=== PATIENT | female | born 1940 | race Two or more races ===

== ENCOUNTER 2020-02-17 15:13 | Emergency (ER) | payer MEDICARE, BC ==
[~2020-02-17] VITALS: Ht 162.6 cm; Wt 68.5 kg
--- NOTE | 2020-02-17 15:21 | NUR ---
[id number] home c/o chest pain 2hrs ago. 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 pt is s/p R knee replacement last . to ER bed 9, hooked to monitor, changed to hosp gown, warm blanket provided, patient aao X 4, breathing even and unlabored, awaiting MD ozuna
--- NOTE | 2020-02-17 15:55 | NUR ---
Dr Baltazar at bedside
[2020-02-17 16:11] LABS: BASOPHILS % (AUTO) 0.2 % (0.0-2.0); EOSINOPHILS % (AUTO) 1.2 % (0.0-6.0); HEMATOCRIT 31 % (33-45); HEMOGLOBIN 10.8 g/dL (11.5-14.8); LYMPHOCYTES # (AUTO) 1.2 /CMM (0.8-4.8); LYMPHOCYTES % (AUTO) 20.8 % (20.0-44.0); MEAN CORPUSCULAR HGB CONC 35 g/dl (31.0-36.0); MEAN CORPUSCULAR VOLUME 84 fL (82-100); MONOCYTES # (AUTO) 0.7 /CMM (0.1-1.30); MONOCYTES % (AUTO) 11.7 % (2.0-12.0); NEUTROPHILS # (AUTO) 3.7 /CMM (1.8-8.9); NEUTROPHILS % (AUTO) 66.1 % (43.0-81.0); PLATELET COUNT (AUTO) 229 /CMM (150-450); RED BLOOD CELL COUNT(AUTO) 3.75 MIL/uL (4.0-5.2); WHITE BLOOD COUNT (AUTO) 5.6 K/uL (4.3-11.0)
[2020-02-17 16:34] LABS: ALANINE AMINOTRANSFERASE 25 U/L (12-78); ALBUMIN 3.1 g/dL (3.4-5.0); ALKALINE PHOSPHATASE 56 U/L (46-116); ASPARTATE AMINOTRANSFERASE 31 U/L (15-37); BILIRUBIN,DIRECT 0.2 mg/dL (0.0-0.2); BILIRUBIN,TOTAL 0.6 mg/dL (0.2-1.0); CALCIUM, SERUM 8.7 mg/dL (8.5-10.1); CARBON DIOXIDE 26 mmol/L (21-32); CHLORIDE 85 mmol/L (98-107); CREATININE 0.6 mg/dL (0.6-1.3); GLUCOSE 115 mg/dL (74-106); POTASSIUM 3.5 mmol/L (3.5-5.1); SODIUM SERUM 121 mmol/L (136-145); TOTAL PROTEIN, SERUM 6.6 g/dL (6.4-8.2); UREA NITROGEN, BLOOD 7 mg/dL (7-18)
[2020-02-17] MEDS ORDERED: ISOS10TA2 PO (16:35)
[2020-02-17] MEDS ORDERED: METO25TA4 PO (16:35)
[2020-02-17] MEDS ORDERED: PRAV40TA3 PO (16:35)
[2020-02-17] MEDS ORDERED: LISI-603 PO (16:35)
[2020-02-17] MEDS ORDERED: IV NS 0.9% 500 ML BAG IV ONE (17:00)
--- NOTE | 2020-02-17 18:18 | NUR ---
Dr Baltazar at bedside speaking with patient's primary MD through phone
[2020-02-17 18:33] LABS: CALCIUM, SERUM 7.7 mg/dL (8.5-10.1); CARBON DIOXIDE 24 mmol/L (21-32); CHLORIDE 91 mmol/L (98-107); CREATININE 0.5 mg/dL (0.6-1.3); GLUCOSE 114 mg/dL (74-106); SODIUM SERUM 123 mmol/L (136-145); UREA NITROGEN, BLOOD 6 mg/dL (7-18)
[2020-02-17 19:23] VITALS: BP 159/81
--- NOTE | 2020-02-17 19:23 | NUR ---
IV removed. Catheter intact and site benign. Pressure and 4x4 applied to site. No bleeding noted.Patient discharged to home in stable condition. Written and verbal after care instructions given. Patient verbalizes understanding of instruction.
[2020-02-17] MEDS ORDERED: LABETALOL HCL IV 100MG VIAL IV ONE (19:30)
== END 2020-02-17 19:24 | disposition home or self-care (01) ==
LOC: ER 15:22
DX: R07.89 Other chest pain (principal); E87.1 Hypo-osmolality and hyponatremia; I10 Essential (primary) hypertension; Z79.899 Other long term (current) drug therapy
CPT/HCPCS: 36415; 71045; 80048 ×2; 80076; 84484; 85025; 93005 ×2; 96360; 96361; 99285; J7030

== ENCOUNTER 2025-02-16 15:51 | Inpatient (IN) | payer MEDICARE, BC ==
[~2025-02-16] VITALS: Ht 167.6 cm; Wt 63.5 kg
[~2025-02-16 15:51] MED LIST: ISOS10TA2 PO; LISI20TA30 PO; METO25TA4 PO; PRAV40TA3 PO
[2025-02-16] MEDS ORDERED: ONDANSETRON HCL/PF 4 MG/2 ML VIAL ONE (15:57)
[2025-02-16] MEDS: IV NS 0.9% 1,000 ML BAG IV ONE (16:05)
[2025-02-16] MEDS: ONDANSETRON HCL/PF 4 MG/2 ML VIAL IVP ONE (16:08)
[2025-02-16 16:24] LABS: PLATELET COUNT (AUTO) 276 K/uL (150-450); RED BLOOD CELL COUNT(AUTO) 4.85 MIL/uL (4.0-5.2); RED CELL DISTRIBUTION WIDTH 13.3 % (11.5-15.0); WHITE BLOOD COUNT (AUTO) 6.8 K/uL (4.3-11.0)
[2025-02-16 16:38] LABS: ASPARTATE AMINOTRANSFERASE 27 U/L (15-37); CALCIUM, SERUM 9.5 mg/dL (8.5-10.1); CREATININE 1.1 mg/dL (0.6-1.3); SODIUM SERUM 134 mmol/L (136-145); TOTAL PROTEIN, SERUM 7.4 g/dL (6.4-8.2); UREA NITROGEN, BLOOD 14 mg/dL (7-18)
[2025-02-16] MEDS ORDERED: MECLIZINE HCL 25 MG TABLET ONE (16:41)
[2025-02-16] MEDS: MECLIZINE HCL 25 MG TABLET PO ONE (16:44)
[2025-02-16] MEDS ORDERED: IOHEXOL-350 100 ML VIAL IV ONE (17:20)
[2025-02-16] MEDS ORDERED: IV NS 0.9% 250 ML IV ONE (17:20)
[2025-02-16] MEDS ORDERED: DIAZEPAM 5 MG/ML 2 ML DISP.SYRIN ONE (17:27)
[2025-02-16] MEDS: DIAZEPAM 5 MG/ML 2 ML DISP.SYRIN IV ONE (17:36)
[2025-02-16 18:51] LABS: INR 1.03 (0.91-1.10)
[2025-02-16] MEDS ORDERED: Z GUARD REMEDY 4 OZ OINT TP PRN (19:30)
[2025-02-16] MEDS ORDERED: MAGNESIUM HYDROXIDE 30 ML UDC PO PRN (19:30)
[2025-02-16] MEDS ORDERED: MAG HYDROX/AL HYDROX/SIMETH 30 ML UDC PO PRN (19:30)
[2025-02-16] MEDS ORDERED: ACETAMINOPHEN 325 MG TABLET PO PRN (19:30)
[2025-02-16] MEDS ORDERED: ZOLPIDEM TARTRATE 5 MG TABLET PO PRN (19:30)
[2025-02-16] MEDS ORDERED: MECLIZINE HCL 25 MG TABLET PO PRN (20:00)
[2025-02-16] MEDS: ASPIRIN 81 MG TAB.CHEW PO SCH (21:10)
[2025-02-16 22:06] LABS: APPEARANCE,URINE CLEAR (CLEAR); BLOOD, URINE Moderate Ery/uL (NEGATIVE); LEUKOCYTE ESTERASE ,URINE Negative (NEGATIVE); NITRITE, URINE NEGATIVE (NEGATIVE); UGLUCOSE Negative (NEGATIVE)
[2025-02-16] MEDS: IV NS 0.9% 1,000 ML IV SCH (22:36)
[2025-02-16] MEDS: ENOXAPARIN SODIUM 40 MG/0.4 ML DISP.SYRIN SQ SCH (22:37)
[2025-02-16 23:10] LABS: ADD URINE CULTURE NO; SQUAMOUS EPITHELIAL CELL,UR 0-2 /HPF (None Seen)
[2025-02-17] VITALS: BP 166/77; TEMP 97.6; O2SAT 95
[2025-02-17 04:00] VITALS: BP 148/77; TEMP 97.8; O2SAT 98
[2025-02-17 06:38] LABS: PLATELET COUNT (AUTO) 245 K/uL (150-450); RED BLOOD CELL COUNT(AUTO) 4.67 MIL/uL (4.0-5.2); RED CELL DISTRIBUTION WIDTH 13.3 % (11.5-15.0); WHITE BLOOD COUNT (AUTO) 4.8 K/uL (4.3-11.0)
[2025-02-17 06:56] LABS: CALCIUM, SERUM 9.2 mg/dL (8.5-10.1); CREATININE 0.7 mg/dL (0.6-1.3); PHOSPHORUS 3.5 mg/dL (2.5-4.9); SODIUM SERUM 139.0 mmol/L (136-145); UREA NITROGEN, BLOOD 8.0 mg/dL (7-18)
[2025-02-17 08:00] VITALS: BP 171/76; TEMP 97.9; O2SAT 100
[2025-02-17] MEDS: LISINOPRIL (20MG) 20 MG TABLET PO SCH (10:19)
[2025-02-17] MEDS: ATORVASTATIN 40 MG TABLET PO SCH (10:19)
[2025-02-17] MEDS: METOPROLOL TARTRATE 50 MG TABLET PO SCH (10:20)
[2025-02-17] MEDS: ISOSORBIDE DINITRATE (10MG) 10 MG TABLET PO SCH (10:20)
[2025-02-17 11:29] LABS: LDL 64.0 mg/dL (0-99)
[2025-02-17 12:00] VITALS: BP 138/74; TEMP 98.4; O2SAT 96
[2025-02-17] MEDS ORDERED: IOHEXOL-350 100 ML VIAL IV ONE (12:03)
[2025-02-17] MEDS ORDERED: IV NS 0.9% 250 ML IV ONE (12:03)
[2025-02-17 16:00] VITALS: BP 133/64; TEMP 98; O2SAT 96
[2025-02-17 20:00] VITALS: BP 174/64; TEMP 98.1; O2SAT 98
[2025-02-18] VITALS: BP 173/85; TEMP 98.1; O2SAT 97
[2025-02-18] MEDS: ONDANSETRON HCL/PF 4 MG/2 ML VIAL IVP PRN (02:57)
[2025-02-18 04:00] VITALS: BP 188/86; TEMP 97.7; O2SAT 97
[2025-02-18 08:00] VITALS: BP 175/76; TEMP 97.7; O2SAT 97
[2025-02-18] MEDS: ISOSORBIDE DINITRATE (10MG) 10 MG TABLET PO SCH (08:58)
[2025-02-18 09:52] LABS: PLATELET COUNT (AUTO) 242 K/uL (150-450); RED BLOOD CELL COUNT(AUTO) 4.53 MIL/uL (4.0-5.2); RED CELL DISTRIBUTION WIDTH 13.4 % (11.5-15.0); WHITE BLOOD COUNT (AUTO) 4.2 K/uL (4.3-11.0)
[2025-02-18 10:04] LABS: ASPARTATE AMINOTRANSFERASE 20.0 U/L (15-37); CALCIUM, SERUM 8.5 mg/dL (8.5-10.1); CREATININE 0.8 mg/dL (0.6-1.3); PHOSPHORUS 2.8 mg/dL (2.5-4.9); SODIUM SERUM 133.0 mmol/L (136-145); TOTAL PROTEIN, SERUM 6.2 g/dL (6.4-8.2); UREA NITROGEN, BLOOD 6.0 mg/dL (7-18)
[2025-02-18] MEDS: IV NS 0.9% 1,000 ML BAG IV PRN (11:20)
[2025-02-18] MEDS: IV NS 0.9% 500 ML IV ONE (11:38)
[2025-02-18 12:00] VITALS: BP 118/73; TEMP 98; O2SAT 98
[2025-02-18] MEDS: IV NS 0.9% 1,000 ML IV PRN (13:19)
[2025-02-18 16:00] VITALS: BP 150/99; TEMP 99; O2SAT 99
[2025-02-18 20:00] VITALS: BP 156/78; TEMP 98; O2SAT 99
[2025-02-19] VITALS: BP 133/109; TEMP 98; O2SAT 99
[2025-02-19 04:00] VITALS: BP 167/66; TEMP 98; O2SAT 99
[2025-02-19 08:00] VITALS: BP 121/74; TEMP 97.7; O2SAT 100
[2025-02-19 11:04] LABS: PLATELET COUNT (AUTO) 226 K/uL (150-450); RED BLOOD CELL COUNT(AUTO) 4.86 MIL/uL (4.0-5.2); RED CELL DISTRIBUTION WIDTH 13.2 % (11.5-15.0); WHITE BLOOD COUNT (AUTO) 5.0 K/uL (4.3-11.0)
[2025-02-19 11:22] LABS: CALCIUM, SERUM 8.4 mg/dL (8.5-10.1); CREATININE 0.5 mg/dL (0.6-1.3); SODIUM SERUM 132.0 mmol/L (136-145); UREA NITROGEN, BLOOD 5.0 mg/dL (7-18)
[2025-02-19 11:27] LABS: ASPARTATE AMINOTRANSFERASE 26.0 U/L (15-37); PHOSPHORUS 2.8 mg/dL (2.5-4.9); TOTAL PROTEIN, SERUM 6.3 g/dL (6.4-8.2)
[2025-02-19] MEDS ORDERED: METOPROLOL TARTRATE 50 MG TABLET PO SCH (21:00)
== END 2025-02-19 12:23 | disposition home or self-care (01) | DRG 149 ==
LOC: ER 15:55 → TELE1 21:51
PROVIDERS: ADMIT Internal Medicine; ATTEND Internal Medicine
DX: R42 Dizziness and giddiness (principal); I21.A1 Myocardial infarction type 2; E87.1 Hypo-osmolality and hyponatremia; I10 Essential (primary) hypertension; I25.10 Atherosclerotic heart disease of native coronary artery without angina pectoris; E86.1 Hypovolemia; E78.5 Hyperlipidemia, unspecified
CPT/HCPCS: 36415; 70450-TC; 70496-TC; 70498-TC; 71045-TC; 75574; 80048-TC; 80053-TC; 80061-TC; 80076-TC; 81001; 82962-TC; 83735-TC; 83880; 84100-TC; 84439-TC; 84443-TC; 84484-TC; 85025-TC; 85610-TC; 85730-TC; 93307-TC; 97116-TC; 97530-TC; A4223; G0378; J1650; J2405; J3360; J7030; J7040; J7050; J7070; J8597; Q9967